=== PATIENT | male | born 1995 | race Caucasian/White ===

== ENCOUNTER 2017-11-13 11:52 | Emergency (ER) | payer OTHER ==
[~2017-11-13] VITALS: Ht 185.4 cm; Wt 90.7 kg
--- NOTE | 2017-11-13 12:31 | ED PSYCHIATRIC COMPLAINT ---
History of Present Illness General Chief Complaint: ETOH/Drug Related Complaint Stated Complaint: VYVANSE ?OVERDOSE, +HALLUCINATIONS Source: patient, family Exam Limitations: no limitations Allergies Coded Allergies: MDX - No Known Drug Allergies - Nkd (NO KNOWN DRUG ALLERGIES - NKDA) (12/23/12) Triage Note: PT STATES HE HAS BEEN ON A VYVANSE BINGE SINCE LAST TUESDAY. STATES NIGHT BEFORE LAST HE STARTED WITH VISUAL HALLUCINATIONS. TODAY AND LAST NIGHT HAVING AUDITORY AND VISUAL HALLUCINATIONS. PT HAS TAKEN 48 (50 MG PILLS) SINCE TUESDAY. PT STATES HE TOOK 9 YESTERDAY. PT DENIES SI/HI Onset: Abrupt HPI: 22-year-old male comes into the emergency room after having visual hallucinations last night. Patient reports that he took increased amount of his Vyvanse which is prescribed to him for his ADD. He reports that he does abuse this medication on a regular basis. He reports that he has taken 48 tabs of the 50 mg over last 3 days. He reports that he is currently trying to study for finals at school. He's been under increasing the amount of stress with his family and recently broke up with his girlfriend. He admits to intermittent binge drinking as well. She denies any suicidal or homicidal ideation. He did not take this excessive amount of medication with the intention to hurt himself. He comes in for further evaluation. He reports that last night he was having visual hallucinations. he was speaking with people that were not there. (Hugo Meza) Vital Signs & Intake/Output Vital Signs & Intake/Output Vital Signs Date Time Temp Pulse Resp B/P B/P Pulse O2 O2 Flow FiO2 Mean Ox Delivery Rate 11/14 0758 81 20 139/73 99 Room Air 11/14 0609 98.4 76 18 141/72 100 11/13 2230 97.8 89 18 135/63 98 Room Air 11/13 2047 18 11/13 1930 98.0 80 16 132/66 98 Room Air ED Intake and Output 11/14 0000 11/13 1200 Intake Total 350 Output Total 0 Balance 350 Intake, Oral 350 Output, Urine 0 Patient 200 lb Weight Weight Reported by Patient Measurement Method Triage Nurses Notes Reviewed? yes (Dena GUY,Lj Jain) Past History Travel History Traveled to [place] past 21 day No Medical History Any Pertinent Medical History? see below for history Psychiatric: ADHD Tetanus Vaccine: 12/23/12 Surgical History Surgical History: non-contributory Psychosocial History What is your primary language [place] Tobacco Use: Never used ETOH Use: occasional use Illicit Drug Use: denies illicit drug use Family History Hx Contributory? No (Hugo Meza) Review of Systems Review of Systems Constitutional: Reports: no symptoms. EENTM: Reports: no symptoms. Respiratory: Reports: no symptoms. Cardiovascular: Reports: no symptoms. GI: Reports: no symptoms. Genitourinary: Reports: no symptoms. Musculoskeletal: Reports: no symptoms. Skin: Reports: no symptoms. Neurological/Psychological: Reports: see HPI. Hematologic/Endocrine: Reports: no symptoms. Immunologic/Allergic: Reports: no symptoms. All Other Systems: Reviewed and Negative (Hugo Meza) Physical Exam Physical Exam General Appearance: well developed/nourished, alert, awake, mild distress Head: atraumatic Eyes: Bilateral: normal appearance, EOMI. Ears, Nose, Throat: normal ENT inspection, hearing grossly normal Neck: normal inspection, supple Respiratory: normal breath sounds, no respiratory distress Cardiovascular: regular rate/rhythm, tachycardia Extremities: normal range of motion Neurological/Psychiatric: awake, calm, depressed affect Appearance/Memory/Insight: appropriate appearance, appropriate insight Behavoir/Eye Contact/Speech: cooperative Thoughts/Hallucinations: no apparent hallucination Skin: intact, normal color, warm/dry SAD PERSONS Done? patient not suicidal (Hugo Meza) Progress Differential Diagnosis: dementia, drug intoxication, drug overdose, drug withdrawal, depression Plan of Care: Orders Procedure Date/time Status Regular Diet 11/13 D Active URINE DRUGS OF ABUSE 11/13 1231 Complete TROPONIN LEVEL 11/13 1231 Complete ETHANOL 11/13 1231 Complete COMPREHENSIVE METABOLIC PANEL 11/13 1231 Complete CBC WITHOUT DIFFERENTIAL 11/13 1231 Complete EKG 11/13 1231 Active ED CRISIS PSYCH CONSULT 11/13 1231 Active Laboratory Tests 11/13/17 1410: Urine Opiates Screen < 100, Methadone Screen < 40, Barbiturate Screen < 60, Ur Phencyclidine Scrn < 6.00, Amphetamines Screen > 1450 H, U Benzodiazepines Scrn < 85, Urine Cocaine Screen < 50, Urine Cannabis Screen < 5.00 11/13/17 1319: Anion Gap 15, Estimated GFR > 60, BUN/Creatinine Ratio 14.5, Glucose 112 H, Calcium 9.6, Total Bilirubin 1.9 H, AST 155 H, ALT 113 H, Alkaline Phosphatase 53, Troponin I < 0.01, Total Protein 7.2, Albumin 4.6, Globulin 2.6, Albumin/Globulin Ratio 1.8, CBC w Diff NO MAN DIFF REQ, RBC 4.82, MCV 86.3, MCH 29.9, MCHC 34.6, RDW 13.5, MPV 7.0 L, Gran % 72.1, Lymphocytes % 15.3 L, Monocytes % 10.7 H, Eosinophils % 1.6, Basophils % 0.3, Absolute Granulocytes 3.6, Absolute Lymphocytes 0.8 L, Absolute Monocytes 0.5, Absolute Eosinophils 0.1, Absolute Basophils 0, Serum Alcohol < 10.0 Initial ED EKG: normal sinus rhythm, rate (72) (Hugo Meza) Hand-Off Endorsed To: Perico Deshpande MD Endorsed Time: 0700 (Lj Fernandes MD) Departure Departure Condition: Stable Referrals: Doc GUY,Seth Angulo (PCP/Family) Departure Forms: Customer Survey General Discharge Information (Hugo Meza) PA/TAIL PULLER Co-Sign Statement Statement: ED Attending supervision documentation- [] I saw and evaluated the patient. I have also reviewed all the pertinent lab results and diagnostic results. I agree with the findings and the plan of care as documented in the PA's/TAIL PULLER's documentation. [x] I have reviewed the ED Record and agree with the PA's/TAIL PULLER's documentation. [] Additions or exceptions (if any) to the PAs/TAIL PULLER's note and plan are summarized below: [] (Dena GUY,Lj Jain) Departure Disposition: HOME OR SELF CARE Clinical Impression Primary Impression: Stimulant abuse Secondary Impressions: Hallucinations, Medication side effect Additional Instructions: FOLLOW UP WITH YOUR APPT TOMORROW WITH [facility] DISCUSSED WITH CRISIS. Notify your primary care physician of this emergency department visit and treatment plan and arrange for follow-up appointment in 1 week to reevaluate your liver enzymes studies (they were elevated here in the emergency department). Avoid drugs and take medications only as prescribed. Return if any concerns or sudden worsening. (Charlee GUY,Perico Echols) FOLLOW UP WITH YOUR APPT TOMORROW WITH [facility] DISCUSSED WITH CRISIS. Notify your primary care physician of this emergency department visit and treatment plan and arrange for follow-up appointment in 1 week to reevaluate your liver enzymes studies (they were elevated here in the emergency department). Avoid drugs and take medications only as prescribed. Return if any concerns or sudden worsening. (Charlee GUY,Perico Echols)
[2017-11-13 13:28] LABS: ABSOLUTE BASOPHIL COUNT 0 /CUMM (0.0-0.2); ABSOLUTE EOSINOPHIL COUNT 0.1 /CUMM (0.0-0.7); ABSOLUTE GRANULOCYTE CT 3.6 /CUMM (1.4-6.5); ABSOLUTE LYMPH COUNT 0.8 /CUMM (1.2-3.4); ABSOLUTE MONOCYTE COUNT 0.5 /CUMM (0.10-0.60); BASOPHIL % 0.3 % (0.0-2.0); EOSINOPHIL % 1.6 % (0-5); GRANULOCYTE % 72.1 % (42.2-75.2); HEMATOCRIT 41.6 % (42-52); MEAN CORPUSCULAR HGB 29.9 PG (27.0-31.0); MEAN CORPUSCULAR HGB CONC 34.6 G/DL (33.0-37.0); MEAN CORPUSCULAR VOLUME 86.3 FL (80.0-94.0); PLATELET COUNT 230 /CUMM (130-400); RBC DISTRIBUTION WIDTH 13.5 % (11.5-14.5); RED BLOOD CELL CT 4.82 /CUMM (4.70-6.10)
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
[2017-11-14 07:58] VITALS: BP 139/73
== END 2017-11-14 09:08 ==
LOC: ERH 11:52
PROVIDERS: Physician Assistant Medical
DX: F15.10 Other stimulant abuse, uncomplicated (principal); R44.1 Visual hallucinations
CPT/HCPCS: 80307; 93005; 93010; G0463; G0480